=== PATIENT | female | born 1955 | race Two or more races ===

== ENCOUNTER → 2019-03-23 | Emergency (ER) | payer MEDICAID ==
[~2019-03-23] VITALS: Ht 152.4 cm; Wt 47.6 kg
[~2019-03-23] MED LIST: AMOX/CLAVULANATE 875 MG TABLET ONE; AMOX/CLAVULANATE 875 MG TABLET PO ONE; CT SWABBABLE VALVE TRANS SET 1 EA INFUS.SET MC ONE; HYDROCODONE/APAP 5/325MG 1 EACH TABLET ONE; HYDROCODONE/APAP 5/325MG 1 EACH TABLET PO ONE; IOHEXOL-300 100 ML VIAL IV ONE; IV NS 0.9% 1,000 ML BAG IV ONE; IV NS 0.9% 250 ML IV ONE
--- NOTE | 2019-03-23 16:30 | NUR ---
[facility], FROM HOME, C/O LEFT FACE PAIN STARTED YESTERDAY 05/07 PS. PT AAOX4, VSS. DENIES ANY OTHER DISCOMFORT. PT SEEN & EVAL'D BY DR. ROJAS. WILL CONT TO MONITOR.
[2019-03-23 16:57] LABS: BASOPHILS # (AUTO) 0.1 /CMM (0.0-0.2); BASOPHILS % (AUTO) 0.5 % (0.0-2.0); EOSINOPHILS % (AUTO) 2.9 % (0.0-6.0); HEMATOCRIT 38 % (33-45); LYMPHOCYTES # (AUTO) 1.4 /CMM (0.8-4.8); LYMPHOCYTES % (AUTO) 11.2 % (20.0-44.0); MEAN CORPUSCULAR HGB CONC 34 g/dl (31.0-36.0); MEAN CORPUSCULAR VOLUME 89 fL (82-100); MONOCYTES # (AUTO) 0.9 /CMM (0.1-1.30); MONOCYTES % (AUTO) 7.8 % (2.0-12.0); NEUTROPHILS # (AUTO) 9.4 /CMM (1.8-8.9); NEUTROPHILS % (AUTO) 77.6 % (43.0-81.0); PLATELET COUNT (AUTO) 314 /CMM (150-450); RED BLOOD CELL COUNT(AUTO) 4.23 MIL/uL (4.0-5.2); WHITE BLOOD COUNT (AUTO) 12.1 K/uL (4.3-11.0)
[2019-03-23 17:04] LABS: CALCIUM, SERUM 8.8 mg/dL (8.5-10.1); CREATININE 0.8 mg/dL (0.6-1.3); POTASSIUM 4.1 mmol/L (3.5-5.1)
--- NOTE | 2019-03-23 17:52 | NUR ---
PT BACK FROM CT. MEDICATED ORDERED BY ER[place], PT JANAE WELL.
[2019-03-23 18:52] VITALS: BP 134/68
== END | disposition home or self-care (01) ==
LOC: ER 16:18
DX: K11.20 Sialoadenitis, unspecified (principal); I10 Essential (primary) hypertension; E11.9 Type 2 diabetes mellitus without complications; Z60.2 Problems related to living alone; Z89.611 Acquired absence of right leg above knee
CPT/HCPCS: 36415; 70487; 80048; 85025; 99284; J7030; J7050; Q9967

== ENCOUNTER 2020-02-12 22:35 | Emergency (ER) | payer MEDICAID ==
[~2020-02-12] VITALS: Ht 152.4 cm; Wt 68.0 kg
[2020-02-12 23:36] VITALS: BP 145/71
== END 2020-02-13 00:09 | disposition home or self-care (01) ==
LOC: ER 22:35
DX: H10.9 Unspecified conjunctivitis (principal); I10 Essential (primary) hypertension; E11.9 Type 2 diabetes mellitus without complications; Z98.890 Other specified postprocedural states